=== PATIENT | male | born 1945 | race Caucasian/White ===

== ENCOUNTER 2023-09-13 23:57 | Inpatient (IN) | payer OTHER, SELFPAY ==
[2023-09-13 20:18] VITALS: BP 150/108
[2023-09-13 22:28] VITALS: BP 193/88; BMI 26.6
--- NOTE | 2023-09-13 22:52 | ED.GENMED ---
History of Present Illness
General
Chief Complaint: Skin Problem
Source: patient
Exam Limitations: none
Time Seen by Provider: 09/13/23 22:41
Nursing documentation reviewed up to this point in time: agreed with
Travel History
Have you had any contact with someone who has COVID-19?: No
Do you have any symptoms of coronavirus? Fever > 100 degrees, chills, cough, shortness of breath, sore throat, loss of taste or smell, muscle aches, or headache?: No
History of Present Illness
History of Present Illness:
Patient presents to ED secondary to worsening open wound on his left medial ankle, which has worsened over the past 'months'. Patient also recently noted increased lower leg swelling with warmth and redness. Denies fever or chills. Denies nausea
or vomiting. Denies direct trauma. Patient does not remember how the initial open wound took place. Patient states that he has been healthy all his life, and has never seen any physician ever.
Review of Systems
Review of Systems
Allergies reviewed?: Yes
All Other Systems: ROS reviewed and negative except as documented in HPI and ROS
Constitutional: Reports no symptoms
EENT: Reports no symptoms
Respiratory: Reports no symptoms
Cardiac: Reports no symptoms
ABD/GI: Reports no symptoms
Musculoskeletal: Reports no symptoms
Skin: Reports other (leg ulcer with redness/swelling)
Neurological: Reports no symptoms
Phy Exam
Physical Exam
Physical Exam:
Physical Exam
General: no apparent distress, not acutely ill. afebrile
Head: nc/at. eomi
Neck: supple. normal range of motion
Neuro: alert and oriented. no focal neurological deficits
Skin: an approx 3cm area of ulcerated wound with minimal foul smelling drainage, with surrounding erythema/warmth, extending up to knee.
Psychiatric: well kept. interactive and cooperative
Extremities: LLE edema, surrounding ulcer.
Course
Orders/Labs/Results
Orders:
Orders
09/13/23 22:51
Vancomycin 1 Gram/200 ml [Vancocin] 1 gram in 200 ml IV NOW
09/13/23 22:57
Complete Blood Count/With Diff Urgent
Comprehensive Metabolic Panel Urgent
Lactic Acid Q4H
Comment: CANCEL 2nd LACTIC ACID IF 1st LACTIC ACID IS LESS THAN 2
Magnesium Urgent
Blood Culture Q30M
DEVIN Source: Blood/Venous
Specimen Description:
09/13/23 22:59
Blood Culture Q30M
DEVIN Source: Blood/Venous
Specimen Description:
09/13/23 23:04
Wound Culture [Wound/Abscess/Other Culture] Urgent
DEVIN Source: Leg
Specimen Description: Left
Date Specimen was Collected: 09/13/23
Time Specimen was Collected: 23:03
Comment: just above the left ankle.
09/13/23 23:33
Admit/Transfer Patient As Directed
Co-Sign Provider:
Level of Care: Inpatient admission
Assign to:: Medical/Surgical
Physician / Group: en
Diagnosis: left LE cellulitis
Reason for Hospitalization: left LE cellulitis
Expected length of stay greater than two midnights?: Yes
ELOS- Estimated Length of Stay in days: 3
I certify the patient meets the requirements for IP care: Yes
09/13/23 23:34
Code Status As Directed
Resuscitation Status: Full Code
09/14/23 00:00
CR Ankle - Left 2 Views Routine
Reason For Exam: ulcerated wound
09/14/23 01:39
Acetaminophen [Tylenol] 650 mg PO Q4HPRN PRN
HydrALAZINE [Apresoline] 10 mg IV Q4HPRN PRN
09/14/23 01:39
WOUND/OSTOMY CONSULT Routine
Reason for Consult: left ankle wound
Activity As Directed
Activity Level: Out of Bed-Early Mobility
Intake/ Output As Directed
Frequency: Per unit guidelines
Vital Signs As Directed
Frequency: Per unit guidelines
DX Deep Vein Thrombosis Video Routine
09/14/23 02:00
Piperacillin/Tazo 3.375 Gram [Zosyn] 3.375 gram in 50 ml IV Q6H
09/14/23 Breakfast
Regular
At Your Request: Full Participation
09/14/23 06:24
Basic Metabolic Panel IN AM
Complete Blood Count/No Diff IN AM
Hemoglobin A1c [Glycohemoglobin (HgbA1c)] IN AM
09/14/23 18:00
Enoxaparin Sodium [Lovenox] 40 mg SC QPM
09/15/23 06:00
Basic Metabolic Panel IN AM
Complete Blood Count/No Diff IN AM
09/16/23 06:00
Basic Metabolic Panel IN AM
Complete Blood Count/No Diff IN AM
09/17/23 06:00
Basic Metabolic Panel IN AM
Complete Blood Count/No Diff IN AM
09/18/23 06:00
Basic Metabolic Panel IN AM
Complete Blood Count/No Diff IN AM
Abnormal Lab Results
09/13/23
22:57
RBC 4.37 L 10^6/uL
(4.70-6.10)
Hgb 12.9 L g/dL
(13.0-18.0)
MPV 10.6 H fL
(7.4-10.4)
Absolute Lymphs (auto) 0.9 L 10^3/uL
(1.2-3.4)
Neutrophils % 75.3 H %
(42.2-75.2)
Lymphocytes % 15.5 L %
(20.5-51.1)
BUN 33 H mg/dl
(9-20)
09/13/23 22:57
09/13/23 22:57
Vital Signs
Initial and Last Documented VS:
Initial Vital Signs
Temp Pulse Resp BP Pulse Ox
97.9 F 84 18 150/108 98
09/13/23 20:18 09/13/23 20:18 09/13/23 20:18 09/13/23 20:18 09/13/23 20:18
Last Documented Vital Signs
Temp Pulse Resp BP Pulse Ox
97.6 F 72 18 147/67 96
09/14/23 15:27 09/14/23 15:27 09/14/23 15:27 09/14/23 15:27 09/14/23 15:27
MDM/Problems Addressed
MDM/Problems Addressed:
Patient with likely undiagnosed, untreated multiple medical condition, along with worsening left lower leg wound with surrounding cellulitic changes. Patient will be admitted for IV antibiotics and further evaluation/treatment.
*Critical Care Note
Total Time (30-74mins, 75-104mins- exclusive of procedures): Not Applicable
ED Attending Note
-
Portions of this chart may have been created with voice recognition software.� Occasional wrong word or��sound alike� substitutions may have occurred due to the inherent limitations of voice recognition software.
Discharge Plan
Departure
Patient Disposition: Admit
Date of Disposition: 09/13/23
Time of Disposition: 23:12
Admit to: Med/Surg
Presentation/result/management discussed w/ accepting MD/DO: Hospitalist
Discharge Problem:
Cellulitis
Interventions
Interventions:
*Risk Screen - Suicide Last Done: 09/13/23 20:18
*General Assessment Last Done: 09/13/23 22:23
*Neglect/Abuse Screening Last Done: 09/13/23 20:18
ED- Fall Risk Assessment Last Done: 09/13/23 23:45
*ED COVID-19 Vaccine History Last Done: 09/13/23 22:23
*Nursing Disposition Last Done: 09/14/23 01:29
ED-Skin Assessment Last Done: 09/14/23 01:23
Discharge Date and Time
Discharge Date/Time: 09/14/23 01:30
[2023-09-13] MEDS: VANCOCIN 200 IV (23:08)
[2023-09-13 23:10] LABS: % Basophils 1.2 % (0-2); % Eosinophils 2.1 % (0-6); % Immature Granulocytes 0.2 % (0-0.5); % Lymphocytes 15.5 % (20.5-51.1); % Monocytes 5.7 % (1.7-9.3); % Neutrophils 75.3 % (42.2-75.2); Absolute Basophils 0.1 10^3/uL (0-0.2); Absolute Eosinophils 0.1 10^3/uL (0-0.7); Absolute Lymphocytes 0.9 10^3/uL (1.2-3.4); Absolute Monocytes 0.3 10^3/uL (0.1-0.6); Absolute Neutrophils 4.4 10^3/uL (1.4-6.5); Hematocrit 39.1 % (39.0-52.0); Hemoglobin 12.9 g/dL (13.0-18.0); Mean Corpuscular Hgb 29.5 pg (27.0-31.0); Mean Corpuscular Volume 89.5 fL (80.0-94.0); Mean Platelet Volume 10.6 fL (7.4-10.4); Nucleated Red Blood Cells % 0 % (-); Platelet Count 166 10^3/uL (130-400); Red Blood Cell Count 4.37 10^6/uL (4.70-6.10); Red Cell Dist. Width 12.9 % (11.5-14.5); White Blood Cell Count 5.8 10^3/uL (4.8-10.8)
--- NOTE | 2023-09-13 23:13 | HPS.HSE ---
Family Physician
-
Family Physician:
Chief Complaint
-
left LE wound
History of Present Illness
77-year-old with past medical history presented to us with worsening open wound on his left medial ankle. He noticed wound many months ago. It is getting worse. Noted increased leg swelling, warmth and redness. Denied fever. He recently noted
some chills. Denied headache, dizziness, syncopal episode. Patient denies any chest pain or short of breath. Patient denies abdominal pain, nausea, vomiting, diarrhea. Patient denies dysuria,hematuria. Patient walks a lot. The trauma.
Patient received a dose of Vanco in ER. For further management
Medical History
Past Medical History
Past Medical History: Reports Other
Additional Past Medical History:
Bradycardia
neuropathy
Past Surgical History: Reports Other
Additional Past Surgical History:
Tonsillectomy
Social History
Tobacco: Non-smoker
Alcohol: None
Drug: None
Living: Alone
Family History
Family History: Not pertinent
Allergies / Home Medications
Allergies reflects when Allergies were last updated in [employer].
Home Medications with original date entered in [employer]
Allergy/Medication List:
Allergies
Allergy/AdvReac Type Severity Reaction Status Date / Time
No Known Allergies Allergy Verified 09/13/23 20:23
Home Medications
No Meds [No Current Medications] 09/13/23
Review of Systems
-
Constitutional: Reports No Symptoms
EENT: Reports No Symptoms
Respiratory: Reports No Symptoms
Cardiac: Reports No Symptoms
Abdomen/GI: Reports No Symptoms
: Reports No Symptoms
Musculoskeletal: Reports No Symptoms
Skin: Reports Other (Left median ankle wound)
Neurological: Reports No Symptoms
Endocrine: Reports No Symptoms
Hematologic/Lymphatic: Reports No Symptoms
Psych: Reports No Symptoms
Physical Exam
Vital Signs
Vital Signs
Temp Pulse Resp BP Pulse Ox
98.7 F 74 18 193/88 99
09/13/23 22:28 09/13/23 22:28 09/13/23 22:28 09/13/23 22:28 09/13/23 22:28
Physical Exam
General: Well Developed, Well Nourished and No Apparent Distress
HEENT: NormoCephalic, Moist mucous membranes and Atraumatic
Respiratory: Clear
Cardiac: S1/S2 and Regular Rhythm; No Murmur or Rub
GI: Soft, Non Tender, Non Distended and Normal Bowel Sounds; No Organomegaly
Rectal: Deferred by Provider
Musculoskeletal: No Clubbing, No Cyanosis and No Edema
Skin: Rash and Other (Ulcerated wound with surrounding erythema and warmth extending to knee)
Neuro: AO x 3 and Nonfocal/grossly intact
Psych: Calm
Laboratory Results
-
09/13/23 22:57
Data Reviewed
-
Lab Data: Labs Reviewed by me
Impression/Plan
-
# Left lower extremity ulcerated wound/cellulitis
-Wound culture sent from ER
-Blood culture sent from ER
-iv vancomycin and Zosyn continued
-Tylenol prn for fever
-obtain LE artery US
-obtain X ray of ankle to evaluated for osteo
-wound consulted
-consider orthopedic consult in AM
#hypertension
-BP elevated in ER
-PRN hydralazine
#hxt of neuropathy
#DVT prophylaxis
-Lovenox
#CODE status
-full code
[2023-09-13 23:22] LABS: Lactic Acid 0.7 mmol/L (0.7-2.0)
[2023-09-13 23:23] LABS: ALT (SGPT) 13 U/L (0-50); AST (SGOT) 24 U/L (17-59); Albumin 4.7 g/dl (3.5-5.0); Alkaline Phosphatase 54 U/L (38-126); Blood Urea Nitrogen 33 mg/dl (9-20); Calcium 9.9 mg/dl (8.4-10.2); Carbon Dioxide 27 mmol/L (22-30); Chloride 104 mmol/L (98-107); Estimated Creatinine Clearance 69 ml/min; Glucose 92 mg/dl (70-99); Magnesium 2.1 mg/dl (1.6-2.3); Potassium 3.7 mmol/L (3.5-5.1); Sodium 141 mmol/L (135-145); Total Bilirubin 0.7 mg/dl (0.2-1.3); Total Protein 8.2 g/dl (6.3-8.2); eGFR > 60.00
--- NOTE | 2023-09-13 23:50 | W.PN.UPDATE ---
Update Note
Progress Note Update
This is an addendum to the H&P written by SHAW Gale on 09/13/2023.
Patient seen examined independent with SPORTS PSYCHOLOGIST. 77-year-old male with no known medical history apart from recent bilateral lower foot neuropathy presenting with infected left ankle medial infected wound with surrounding foot cellulitis.
History suggesting diabetic ulcer however blood glucose normal. Wound culture, blood cultures sent. Vancomycin/Zosyn. Check hemoglobin A1c. Check ankle x-ray to evaluate for osteomyelitis. Check arterial ultrasound. Wound care consulted.
Consider orthopedic podiatry/ vascular depending on findings.
--- NOTE | 2023-09-14 01:17 | WOUNDNOTE ---
left leg
left leg
[2023-09-14 01:30] VITALS: BP 199/82; BMI 25.4
[2023-09-14] MEDS: APRESOLINE 10 MG IV ×2 (01:57→23:36)
[2023-09-14] MEDS: ZOSYN 50 IV ×3 (01:57→15:07)
--- NOTE | 2023-09-14 02:33 | PTCARENOTE ---
Received pt from ED via stretcher. Pt walked himself to bed. AAOx3 - very talkative, BP elevated, states he is a little anxious. PRN hydralazine given as ordered. Other vitals stable. Oriented pt to room. Call garcia within reach.
[2023-09-14 03:10] VITALS: BP 172/71
[2023-09-14 07:20] VITALS: BP 147/61
[2023-09-14 07:26] LABS: Hematocrit 35.1 % (39.0-52.0); Hemoglobin 11.7 g/dL (13.0-18.0); Mean Corp Hgb Conc. 33.3 g/dL (33.0-37.0); Mean Corpuscular Hgb 30.5 pg (27.0-31.0); Mean Corpuscular Volume 91.6 fL (80.0-94.0); Mean Platelet Volume 11.1 fL (7.4-10.4); Platelet Count 149 10^3/uL (130-400); Red Blood Cell Count 3.83 10^6/uL (4.70-6.10); Red Cell Dist. Width 12.8 % (11.5-14.5); White Blood Cell Count 5.3 10^3/uL (4.8-10.8)
[2023-09-14 08:01] LABS: Blood Urea Nitrogen 27 mg/dl (9-20); Calcium 8.9 mg/dl (8.4-10.2); Carbon Dioxide 28 mmol/L (22-30); Chloride 105 mmol/L (98-107); Estimated Creatinine Clearance 78 ml/min; Glucose 81 mg/dl (70-99); Potassium 3.6 mmol/L (3.5-5.1); Sodium 135 mmol/L (135-145); eGFR > 60.00
--- NOTE | 2023-09-14 09:12 | PHA.VAN.IN ---
Assessment
- Assessment
Renal Function: Appears similar to baseline
Concomitant Antimicrobials: piperacillin/tazobactam
AUC Dosing Plan
- Dosing Variables
Dosing Weight (kg): 71
Dosing CrCl (ml/min): 78
Vd coefficient (L/kg): 0.7
- Empiric Dosing
Initial / Loading Dose: Vanc 1000mg 09/12 23:08
Maintenance Regimen: Vanc 750mg Q12H - give dose now then 1800 in lieu of load
Estimated AUC (mcg*h/mL): 452
Estimated Peak (mcg*h/mL): 26.8
Estimated Trough (mcg/ml): 12.5
Estimated Half Life (H): 10
- Monitoring
No levels ordered at this time: consider levels in next few days
Pharmacokinetics Vancomycin I
- -
Patient Age: 77
Patient Sex: Male
Vancomycin Day #: 1
Indication: Skin And Soft Tissue
Requesting Provider: Veronika Gale
Pertinent Antimicrobial Allergies:
NKDA
Height / Weight:
Height 5 ft 6 in
Actual Weight 71.384 kg
- Vital Signs / Lab Results
Temp Pulse Resp BP Pulse Ox
98.0 F 69 16 147/61 97
09/14/23 07:20 09/14/23 07:20 09/14/23 07:20 09/14/23 07:20 09/14/23 07:20
Lab Results - Hematology
09/13/23 09/14/23
22:57 06:24
WBC 5.8 5.3
Lab Results - Chemistry
09/13/23 09/14/23
22:57 06:24
BUN 33 H 27 H
Creatinine 0.8 0.7
Estimated Creat Clear 69 78
Albumin 4.7
09/13/23 09/14/23
22:57 03:00
Lactic Acid 0.7 Cancelled
[2023-09-14 09:22] LABS: Glycohemoglobin (HgbA1c) 5.9 % (4.0-5.6)
[2023-09-14] MEDS: VANCOCIN 150 IV (10:50)
--- NOTE | 2023-09-14 11:23 | W.PN.HOSP.TC ---
Today's Communication/Plan
-
await arterial US
will consult ID
probable wound care post dc
Assessment / Plan
Assessment / Plan
# Left lower extremity ulcerated wound/cellulitis
-Wound culture sent from ER
-Blood culture sent from ER
-iv vancomycin and Zosyn continued
-Tylenol prn for fever
-obtain LE artery US pending
- X ray of ankle No focal cortical bony destructive process.
-wound consulted
ID consult
Hga1c 5.9%
#hypertension
-BP elevated in ER, better now, 147/61
though did receive 1 dose of Hydralazine at 01:57 this morning
will follow, consider starting anti-HTN Rx based on BP over next 24 hrs
-PRN hydralazine
#hxt of neuropathy
#DVT prophylaxis
-Lovenox
#CODE status
-full code
Anticipated Discharge: 24 - 48 hours
Subjective/Interval History
-
Date of Service: September 14, 2023
Left medial ankle wound
Objective Data
-
Labs:
Laboratory Results
09/13/23 09/14/23
22:57 06:24
WBC 5.3
Hgb 11.7 L
Hct 35.1 L
Plt Count 149
Sodium 141 135
Potassium 3.7 3.6
Chloride 104 105
Carbon Dioxide 27 28
BUN 33 H 27 H
Creatinine 0.8 0.7
Glucose 92 81
Calcium 9.9 8.9
Total Bilirubin 0.7
AST 24
ALT 13
Alkaline Phosphatase 54
Vital Signs:
Vital Signs
Temp Pulse Resp BP Pulse Ox
98.0 F 69 16 147/61 97
09/14/23 07:20 09/14/23 07:20 09/14/23 07:20 09/14/23 07:20 09/14/23 07:20
Review of Systems
-
History Source: Patient and Coordinated Provider
Constitutional: Denies Fever
EENT: Reports No Symptoms Reported
Respiratory: Reports No Symptoms
Cardiac: Reports No Symptoms
Abdomen/GI: Reports No Symptoms
Musculoskeletal: Reports Other (wound area is tender)
Skin: Reports Sores
Physical Exam
-
General: Well Developed, Well Nourished and No Apparent Distress
HEENT: Normocephalic, Atraumatic and Moist Mucous Membranes
Respiratory: Clear to Auscultation; Negative Wheezes, Rales or Rhonchi
Cardiac: Regular Rhythm and S1/S2
GI: Soft, Nontender and Nondistended
Musculoskeletal: No Clubbing, No Cyanosis and No Edema
Skin: Rash (left medial LE)
Neuro: Awake, Alert and Oriented
[2023-09-14 11:25] VITALS: BP 166/89
--- NOTE | 2023-09-14 12:04 | WOUNDNOTE ---
L LOWER MEDIAL LEG
--- NOTE | 2023-09-14 12:05 | WOUNDNOTE ---
L 3RD PLANTAR TOE CALLUS
--- NOTE | 2023-09-14 12:05 | WOUNDNOTE ---
L POSTERIOR LOWER LEG
--- NOTE | 2023-09-14 12:07 | WOUNDNOTE ---
ADALBERTO RN note: Patient admitted with cellulitis of L leg.
See H&P for complete history.
PMH: HTN and neuropathy.
Wound Location and type/assessment: Patient admitted with: L leg open ulcer with redness and edema of leg. Wound on leg for several months states patient, started when scratched leg. Wound culture pending. + palpable pedal pulses, heels intact.
Legs and feet with dry skin, few calluses on plantar feet and L 3rd toe. Patient states he walks allot until recently when pain and wound in leg became worse. Able to turn self onto sides, sacrum intact.
Appetite: Good.
Pressure redistribution devices in place: [employer] bed, he is ad jarrell.
Plan: Today applied honey gel, adaptic and dry dressing with rex wrap knee high, patient tolerating.
Will confirm orders with hospitalist and updated nurse Alex.
Updated care plan and will follow as needed.
Note to case management of equipment requested for discharge: VN if accepted.
Recommend follow up at wound care center upon discharge.
[2023-09-14 15:27] VITALS: BP 147/67
--- NOTE | 2023-09-14 17:15 | CON.ID ---
Consultation
-
Date/Time Consultation Requested: September 14, 2023 1202
Date/Time Consultation Performed: September 14, 2023 1600
Requesting Provider: Dr. Joaquin Mccabe
Performing Provider: Dr. Yessenia Delgado
Reason for Consultation: Infected leg wound
Chief Complaint / Past History
Chief Complaint
LEFT leg redness
History of Present Illness
77-year-old male with neuropathy who does not see a doctor presented to the hospital on September 12 due to worsening erythema of the left leg. He reports he has a left medial ankle wound for a long time/many months. Wound started when his ankle was
itching and he scratched the area. In time, the ankle wound got progressively larger than stabilized. Wound is painful. He tries to take care of of the wound himself by applying Neosporin and a Kotex pad. Over the past few days, he noted his
legs started to become more red around the wound. No fevers or chills.
Past History
Additional Past Medical History:
(No routine medical care)
Neuropathy
Allergy History:
No Known Allergies Allergy (Verified 09/13/23 20:23)
Medications Reviewed: Yes
Current Antibiotics:
Vancomycin
Zosyn
Social History
Tobacco: Non-Smoker
Alcohol: None
Drug: None
Personal: Single
Living: Alone (apartment. no pets)
Employment: Not Employed
Family History
Family History: Not Pertinent
Review of Systems
Review of Systems
General: Negative Fever, Chills or Change in Appetite
HEENT: Negative Sinus Problems, Headache or Pharyngitis
Cardiovascular: Negative Chest Pain
Respiratory: Negative Dyspnea or Cough
Genital / Urological: Negative Dysuria or Flank Pain
Endocrine: Negative Weakness or Fatigue
Neurological: Negative Headache or Dizziness
All systems: All other systems were reviewed and were negative
Vital Signs
Temp Pulse Resp BP Pulse Ox
97.6 F 72 18 147/67 96
09/14/23 15:27 09/14/23 15:27 09/14/23 15:27 09/14/23 15:27 09/14/23 15:27
Physical Exam
Physical Exam
Constitutional: No Acute Distress
Eyes: No Conjunctival Hemorrhage and Sclera Anicteric
Oral: Poor Dentition
Cardiovascular: Regular Rate and S1/S2
Pulmonary: Clear
Gastrointestinal: Soft, Non Tender, Non Distended and Normal Bowel Sounds
Genito-Urinary: Negative CVA Tenderness
Extremities: Edema (LLE 1+) and Pulses (palpable pedal pulses)
Wound: Other (Above left medial ankle: large oval shallow wound with dark yellow fibrinous exudate; + erythema around wound extending up joshua and down the foot. )
Neurological: AO x 3
Psychological: Other (Talkative)
Lab / Diagnostic Study Results
09/14/23 06:24
09/14/23 06:24
Abs Immat Gran (auto) 0.0 10^3/uL (0-0.05) 09/13/23 22:57
Absolute Neuts (auto) 4.4 10^3/uL (1.4-6.5) 09/13/23 22:57
Absolute Lymphs (auto) 0.9 10^3/uL (1.2-3.4) L 09/13/23 22:57
Absolute Monos (auto) 0.3 10^3/uL (0.1-0.6) 09/13/23 22:57
Absolute Basos (auto) 0.1 10^3/uL (0-0.2) 09/13/23 22:57
Immature Gran % 0.2 % (0-0.5) 09/13/23 22:57
Neutrophils % 75.3 % (42.2-75.2) H 09/13/23 22:57
Lymphocytes % 15.5 % (20.5-51.1) L 09/13/23 22:57
Monocytes % 5.7 % (1.7-9.3) 09/13/23 22:57
Eosinophils % 2.1 % (0-6) 09/13/23 22:57
Basophils % 1.2 % (0-2) 09/13/23 22:57
Lactic Acid Cancelled 09/14/23 03:00
Microbiology Results
Micro:
09/13/23 23:04 Wound Culture - Pending
Leg - Left Gram Stain - Preliminary
09/14/23 02:24 MRSA Screen - Pending
Nose
09/13/23 22:57 Blood Culture - Pending
Blood/Venous
09/13/23 22:59 Blood Culture - Pending
Blood/Venous
Ankle XRAY: No focal cortical bony destructive process.
Arterial duplex: left TBI 0.96; Right PRINCE 1.21
Assessment / Plan
# Acute LLE cellulitis
# LLE venous stasis ulcer
- Appreciate wound care recs.
-Continue compression.
-Narrow Vanco/Zosyn to cefepime.
- Follow clinically
[2023-09-14] MEDS: STERILE WATER FOR INJECTION 10 ML IV (21:08)
[2023-09-14] MEDS: MAXIPIME 2000 MG IV (21:09)
[2023-09-14 23:15] VITALS: BP 181/75
[2023-09-15 03:45] VITALS: BP 139/52
[2023-09-15] MEDS: MAXIPIME 2000 MG IV ×3 (05:45→21:01)
[2023-09-15] MEDS: STERILE WATER FOR INJECTION 10 ML IV ×3 (05:45→21:01)
[2023-09-15 07:30] VITALS: BP 144/63
[2023-09-15 07:32] LABS: Hematocrit 35.7 % (39.0-52.0); Hemoglobin 11.9 g/dL (13.0-18.0); Mean Corp Hgb Conc. 33.3 g/dL (33.0-37.0); Mean Corpuscular Hgb 29.9 pg (27.0-31.0); Mean Corpuscular Volume 89.7 fL (80.0-94.0); Mean Platelet Volume 10.7 fL (7.4-10.4); Platelet Count 159 10^3/uL (130-400); Red Blood Cell Count 3.98 10^6/uL (4.70-6.10); White Blood Cell Count 5.3 10^3/uL (4.8-10.8)
[2023-09-15 07:51] LABS: Blood Urea Nitrogen 30 mg/dl (9-20); Carbon Dioxide 26 mmol/L (22-30); Chloride 107 mmol/L (98-107); Estimated Creatinine Clearance 69 ml/min; Glucose 89 mg/dl (70-99); Sodium 136 mmol/L (135-145); eGFR > 60.00
[2023-09-15] MEDS: HYDROPHOR 1 APPLIC TOPICAL (10:10)
--- NOTE | 2023-09-15 12:19 | W.PN.ID1 ---
Date of Service
Date of Service: September 15, 2023
Today's Communication
check qtc
Assessment / Plan
# Acute LLE cellulitis
# LLE venous stasis ulcer
- wound culture many GNR, rare GPCs; MRSA screen negative
- Continue compression; elevation as tolerated
- EKG to check QTc
- continue cefepime.
- Appreciate wound care recs.
- Follow clinically
Chief Complaint
-: Cellulitis
Subjective / Review of Systems
afebrile
bp stable
without leukocytosis
cr stable
blood cultures no growth to date
leg less swollen still quite red
Vital Signs / Physical Exam
Vital Signs
Vital Signs
Temp Pulse Resp BP Pulse Ox
98.2 F 60 18 144/63 97
09/15/23 07:30 09/15/23 07:30 09/15/23 07:30 09/15/23 07:30 09/15/23 08:00
Physical Exam
Constitutional: No Acute Distress
Cardiovascular: Regular Rate and S1/S2; Negative Murmur or Rub
Pulmonary: Clear and Symmetric; Negative Wheezes or Rales
Gastrointestinal: Soft, Non Tender, Non Distended and Normal Bowel Sounds
Skin: Warm, Dry and Rash (photo reviewed still bright red, swollen, tender); Negative Jaundice
Neurological: Awake
Objective Data
Lab Data
Lab Results
09/15/23 06:23
09/15/23 06:23
Estimated Creat Clear 69 ml/min 09/15/23 06:23
Lactic Acid Cancelled 09/14/23 03:00
Total Bilirubin 0.7 mg/dl (0.2-1.3) 09/13/23 22:57
AST 24 U/L (17-59) 09/13/23 22:57
ALT 13 U/L (0-50) 09/13/23 22:57
Alkaline Phosphatase 54 U/L (38-126) 09/13/23 22:57
Most recent labs reviewed.
Micro Results:
09/14/23 02:24 MRSA Screen - Final
Nose No Methicillin Resistant Staphylococcus aureus isolated.
09/13/23 22:59 Blood Culture - Preliminary
Blood/Venous No Growth in 24 hours- Final report to follow
09/13/23 22:57 Blood Culture - Preliminary
Blood/Venous No Growth in 24 hours- Final report to follow
09/13/23 23:04 Wound Culture - Pending
Leg - Left Gram Stain - Preliminary
Ankle XRAY: No focal cortical bony destructive process.
Arterial duplex: left TBI 0.96; Right PRINCE 1.21
Care Review
Plan reviewed with: Nurse (leg)
--- NOTE | 2023-09-15 12:35 | W.PN.HOSP.TC ---
Today's Communication/Plan
-
add Norvasc
plan to stop Hydralazine if BP normalizes
Assessment / Plan
Assessment / Plan
# Left lower extremity ulcerated wound/cellulitis
-Wound culture sent from ER-NGTD
-Blood culture sent from ER-NGTD
-iv vancomycin and Zosyn changed to Cefepime by ID
-Tylenol prn for fever
-obtain LE artery US pending
- X ray of ankle No focal cortical bony destructive process.
-wound consulted
ID consult
Hga1c 5.9%
#hypertension
-BP elevated in ER, better now, 144/63
though did receive 2 doses of Hydralazine
will follow,will add low dose Norvasc
-PRN hydralazine
#hxt of neuropathy
#DVT prophylaxis
-Lovenox
#CODE status
-full code
Anticipated Discharge: > 48 hours
Subjective/Interval History
-
Date of Service: September 15, 2023
Leg less painful
Objective Data
-
Labs:
Laboratory Results
09/15/23
06:23
WBC 5.3
Hgb 11.9 L
Hct 35.7 L
Plt Count 159
Sodium 136
Potassium 4.0
Chloride 107
Carbon Dioxide 26
BUN 30 H
Creatinine 0.8
Glucose 89
Calcium 9.0
Vital Signs:
Vital Signs
Temp Pulse Resp BP Pulse Ox
98.2 F 60 18 144/63 97
09/15/23 07:30 09/15/23 07:30 09/15/23 07:30 09/15/23 07:30 09/15/23 08:00
I&O
09/14/23 09/15/2324
06:59 06:59 06:59
Intake Total 1080 / 1080
Balance 1080 / 1080
Review of Systems
-
History Source: Patient and Coordinated Provider
Constitutional: Denies Fever
EENT: Reports No Symptoms Reported
Respiratory: Reports No Symptoms
Cardiac: Reports No Symptoms
Abdomen/GI: Reports No Symptoms
Musculoskeletal: Reports Other (wound area is tender)
Skin: Reports Sores
Physical Exam
-
General: Well Developed, Well Nourished and No Apparent Distress
HEENT: Normocephalic, Atraumatic and Moist Mucous Membranes
Respiratory: Clear to Auscultation; Negative Wheezes, Rales or Rhonchi
Cardiac: Regular Rhythm and S1/S2
GI: Soft, Nontender and Nondistended
Musculoskeletal: No Clubbing, No Cyanosis and No Edema
Skin: Rash (left medial LE, cellulitic rash has decreased by ~25%since starting abx) and Ulcers (leg wound slowly improving)
Neuro: Awake, Alert and Oriented
[2023-09-15] MEDS: NORVASC 5 MG PO (13:36)
[2023-09-15] MEDS: TYLENOL 650 MG PO (13:39)
[2023-09-15 15:45] VITALS: BP 163/71
--- NOTE | 2023-09-15 15:52 | CM ---
Addendum entered by Krupa Lozada 09/15/23 16:25:
Per patient's nurse, she helped him get an appointment [facility]
Patient does not drive; takes public transportation
Plan: wound care @ home vs Wound Care Center
Original Note:
Patient does not have a phone
Need to verify Pharmacy
Patient does not have a PCP; provided information to contact [facility]; ask to speak with Sadie; and make an appointment for next week.
Wound Care nurse offered to get patient scheduled with Wound Clinic after discharge
[2023-09-15 16:04] VITALS: BP 159/66
--- NOTE | 2023-09-15 16:16 | PTCARENOTE ---
Helped pt make followup appt post discharge.
[facility]
Dr Javier Locke
WednesdaySeptember 19 11:15am
[2023-09-15] MEDS: APRESOLINE 10 MG IV (22:58)
[2023-09-15 23:32] VITALS: BP 172/67
[2023-09-16 00:32] VITALS: BP 153/63
[2023-09-16] MEDS: STERILE WATER FOR INJECTION 10 ML IV ×3 (05:34→21:21)
[2023-09-16] MEDS: MAXIPIME 2000 MG IV ×3 (05:34→21:21)
[2023-09-16 08:11] VITALS: BP 175/76
[2023-09-16] MEDS: NORVASC 5 MG PO (08:16)
[2023-09-16] MEDS: HYDROPHOR 1 APPLIC TOPICAL (08:16)
[2023-09-16 09:49] VITALS: BP 159/91
--- NOTE | 2023-09-16 10:37 | CM ---
Addendum entered by Krupa Lozada 09/16/23 11:00:
Pharmacy updated in [facility]
Addendum entered by Krupa Lozada 09/16/23 10:53:
Referral for home health [facility] for Wound Care sent via [employer] Text to [facility] liaison
Patient advised to get a mobile phone; he said he can get a free phone from a nearby [employer]
PCP appointment scheduled for Wednesday
Original Note:
Met with patient, initial assessment completed
Pharmacy verified: [facility], [place]
Patient lives alone in an apartment; 1 step to enter building; 5-6 steps up to his apartment; bathroom has tub w/shower; grab bar
PLOF: independent with ambulation, ADLs, and stairs; utilizes public transportation
Reports that he has plenty of food in his pantry; utilizes food/meal resources in his community
Has an appointment to see Primary Care Physician @ [facility] next week
Does not have a phone
Reported that he will be able to get to [facility] via public transportation
Plan: discharge to home when medically stable; outpatient wound care services @ [facility]
--- NOTE | 2023-09-16 12:19 | W.PN.HOSP.TC ---
Today's Communication/Plan
-
continue Cefepime
continue Norvasc
Assessment / Plan
Assessment / Plan
# Left lower extremity ulcerated wound/cellulitis
-Wound culture sent from ER- Pseudomonas, Strep
-Blood culture sent from ER-NGTD
-iv vancomycin and Zosyn changed to Cefepime by ID
-Tylenol prn for fever
-obtain LE artery US pending
- X ray of ankle No focal cortical bony destructive process.
-wound consulted
ID consult appreciated
Hga1c 5.9%
Pt would like to be transitioned to oral abx tomorrow, await further input from ID, for now continue Cefepime
#hypertension
-BP elevated in ER, better now, 159/91
though did receive 3 doses of Hydralazine
will follow, added low dose Norvasc
-PRN hydralazine
#hxt of neuropathy
#DVT prophylaxis
-Lovenox
#CODE status
-full code
Anticipated Discharge: 24 - 48 hours
Subjective/Interval History
-
Date of Service: September 16, 2023
Still with leg pain
Objective Data
-
Vital Signs:
Vital Signs
Temp Pulse Resp BP Pulse Ox
97.5 F 67 18 159/91 96
09/16/23 08:11 09/16/23 09:49 09/16/23 09:49 09/16/23 09:49 09/16/23 09:49
I&O
09/15/23 09/16/23 09/17/23
06:59 06:59 06:59
Intake Total 1080 / 1080 840 / 840
Balance 1080 / 1080 840 / 840
Review of Systems
-
History Source: Patient and Coordinated Provider
Constitutional: Denies Fever
EENT: Reports No Symptoms Reported
Respiratory: Reports No Symptoms
Cardiac: Reports No Symptoms
Abdomen/GI: Reports No Symptoms
Musculoskeletal: Reports Other (wound area is tender)
Skin: Reports Sores
Physical Exam
-
General: Well Developed, Well Nourished and No Apparent Distress
HEENT: Normocephalic, Atraumatic and Moist Mucous Membranes
Respiratory: Clear to Auscultation; Negative Wheezes, Rales or Rhonchi
Cardiac: Regular Rhythm and S1/S2
GI: Soft, Nontender and Nondistended
Musculoskeletal: No Clubbing, No Cyanosis and No Edema
Skin: Rash (left medial LE, cellulitic rash has decreased further) and Ulcers (leg wound slowly improving)
Neuro: Awake, Alert and Oriented
[2023-09-16] MEDS: TYLENOL 650 MG PO (12:34)
--- NOTE | 2023-09-16 12:50 | VNURNOTE ---
Home Health Liaison met with patient at 1130 to discuss [facility] nurse visits, schedule and homebound status. Patient is agreeable and understands that visits at home will be 2-3 x per week to assess and teach medical management and wound care. Patient
does not currently have a PCP and [facility] brochure provided with contact information and patient understands to call after being seen by [facility].
Patient is also in need of phone, he will obtain phone from his [facility] and understands to call [facility] office to arrange visits.
[facility] referral completed in [facility]
[2023-09-16 15:52] VITALS: BP 168/63
[2023-09-16] MEDS: APRESOLINE 10 MG IV (16:16)
[2023-09-16 17:26] VITALS: BP 145/74
[2023-09-16 23:08] VITALS: BP 153/63
[2023-09-17] MEDS: STERILE WATER FOR INJECTION 10 ML IV (05:32)
[2023-09-17] MEDS: MAXIPIME 2000 MG IV (05:32)
[2023-09-17 07:30] VITALS: BP 168/75
[2023-09-17] MEDS: HYDROPHOR 1 APPLIC TOPICAL (08:03)
[2023-09-17] MEDS: NORVASC 5 MG PO (08:06)
[2023-09-17 08:18] LABS: % Basophils 1.3 % (0-2); % Lymphocytes 25.4 % (20.5-51.1); % Monocytes 8.6 % (1.7-9.3); % Neutrophils 51.7 % (42.2-75.2); Absolute Basophils 0.1 10^3/uL (0-0.2); Absolute Eosinophils 0.6 10^3/uL (0-0.7); Absolute Lymphocytes 1.2 10^3/uL (1.2-3.4); Absolute Monocytes 0.4 10^3/uL (0.1-0.6); Absolute Neutrophils 2.3 10^3/uL (1.4-6.5); Hematocrit 37.5 % (39.0-52.0); Hemoglobin 12.2 g/dL (13.0-18.0); Mean Corp Hgb Conc. 32.5 g/dL (33.0-37.0); Mean Corpuscular Hgb 30.2 pg (27.0-31.0); Mean Corpuscular Volume 92.8 fL (80.0-94.0); Mean Platelet Volume 10.9 fL (7.4-10.4); Nucleated Red Blood Cells % 0 % (-); Platelet Count 147 10^3/uL (130-400); Red Blood Cell Count 4.04 10^6/uL (4.70-6.10); Red Cell Dist. Width 12.9 % (11.5-14.5); White Blood Cell Count 4.5 10^3/uL (4.8-10.8)
[2023-09-17 08:37] LABS: Blood Urea Nitrogen 33 mg/dl (9-20); Calcium 9.1 mg/dl (8.4-10.2); Carbon Dioxide 26 mmol/L (22-30); Chloride 107 mmol/L (98-107); Estimated Creatinine Clearance 69 ml/min; Glucose 100 mg/dl (70-99); Potassium 4.6 mmol/L (3.5-5.1); Sodium 136 mmol/L (135-145); eGFR > 60.00
[2023-09-17 08:51] LABS: Erythrocyte Sed Rate 12 mm/hour (0-20)
[2023-09-17] MEDS: TYLENOL 650 MG PO (09:28)
--- NOTE | 2023-09-17 13:44 | W.PN.ID1 ---
Date of Service
Date of Service: September 17, 2023
Today's Communication
- start ciprofloxacin and keflex x3 more days
- follow up with wound care center
- Follow up with PCP
Assessment / Plan
# Acute LLE cellulitis
# LLE venous stasis ulcer
- wound culture many Pseduomonas, K oxytoca, GBS, CONS
- Continue compression; elevation as tolerated
- QTc 465
- start ciprofloxacin and keflex x3 more days
- follow up with wound care center
- Follow up with PCP
Chief Complaint
-: Cellulitis
Subjective / Review of Systems
afebrile
hypertensive
mild leukopenia today
cr stable
wound cultures finalized
Vital Signs / Physical Exam
Vital Signs
Vital Signs
Temp Pulse Resp BP Pulse Ox
97.9 F 69 18 168/75 96
09/17/23 07:30 09/17/23 08:06 09/17/23 07:30 09/17/23 08:06 09/17/23 08:18
Physical Exam
Constitutional: No Acute Distress
Pulmonary: Symmetric and Non Labored
Gastrointestinal: Non Distended
Skin: Warm, Dry and Other (wound without surrounding erythema, minimal serous drainage, no odor; no longer swollen); Negative Rash or Jaundice
Objective Data
Lab Data
Lab Results
09/17/23 07:37
09/17/23 07:37
ESR 12 mm/hour (0-20) 09/17/23 07:37
Estimated Creat Clear 69 ml/min 09/17/23 07:37
Lactic Acid Cancelled 09/14/23 03:00
Total Bilirubin 0.7 mg/dl (0.2-1.3) 09/13/23 22:57
AST 24 U/L (17-59) 09/13/23 22:57
ALT 13 U/L (0-50) 09/13/23 22:57
Alkaline Phosphatase 54 U/L (38-126) 09/13/23 22:57
Most recent labs reviewed.
Organism 1 Pseudomonas aeruginosa
Organism 2 Klebsiella oxytoca
P.AERU K.OXYTOCA
M.I.C. RX M.I.C. RX
--------- --- --------- ---
Amoxicillin/Potas. Clavulanate <=8/4 S
Ampicillin >16 R
Ampicillin/Sulbactam <=8/4 S
Cefazolin 4 I
Cefepime 4 S <=2 S
Ceftazidime 4 S <=1 S
Ceftriaxone <=1 S
Ertapenem <=0.5 S
Ciprofloxacin <=0.25 S <=0.25 S
Gentamicin 8 I <=4 S
Levofloxacin <=0.5 S <=0.5 S
Meropenem <=1 S <=1 S
Piperacillin/Tazobactam <=16 S <=16 S
Tobramycin <=4 S <=4 S
Trimethoprim/Sulfamethoxazole <=2/38 S
Micro Results:
09/13/23 23:04 Wound Culture - Final
Leg - Left Pseudomonas aeruginosa
Klebsiella oxytoca
Streptococcus agalactiae
Gram Stain - Final
09/13/23 22:59 Blood Culture - Preliminary
Blood/Venous No Growth in 72 hours- Final report to follow
09/13/23 22:57 Blood Culture - Preliminary
Blood/Venous No Growth in 72 hours- Final report to follow
09/14/23 02:24 MRSA Screen - Final
Nose No Methicillin Resistant Staphylococcus aureus isolated.
Ankle XRAY: No focal cortical bony destructive process.
Arterial duplex: left TBI 0.96; Right PRINCE 1.21
Care Review
Plan reviewed with: Physician (Dr Mccabe - abx)
--- NOTE | 2023-09-17 14:47 | W.PN.HOSP.TC ---
Today's Communication/Plan
-
dc now
Assessment / Plan
Assessment / Plan
# Left lower extremity ulcerated wound/cellulitis
-Wound culture sent from ER- Pseudomonas, Strep
-Blood culture sent from ER-NGTD
-iv vancomycin and Zosyn changed to Cefepime by ID and now Cipro and Keflex
-Tylenol prn for fever
-obtain LE artery US pending
- X ray of ankle No focal cortical bony destructive process.
-wound consulted
ID consult appreciated
Hga1c 5.9%
#hypertension
-BP elevated in ER, better now, 159/91
though did receive 3 doses of Hydralazine
will follow, added low dose Norvasc
-PRN hydralazine
#hxt of neuropathy
#DVT prophylaxis
-Lovenox
#CODE status
-full code
dc now
see dictated note
Anticipated Discharge: Today
Subjective/Interval History
-
Date of Service: September 17, 2023
Pt anxiously awaiting dc
Objective Data
-
Labs:
Laboratory Results
09/17/23
07:37
WBC 4.5 L
Hgb 12.2 L
Hct 37.5 L
Plt Count 147
Sodium 136
Potassium 4.6
Chloride 107
Carbon Dioxide 26
BUN 33 H
Creatinine 0.8
Glucose 100 H
Calcium 9.1
Vital Signs:
Vital Signs
Temp Pulse Resp BP Pulse Ox
97.9 F 69 18 168/75 96
09/17/23 07:30 09/17/23 08:06 09/17/23 07:30 09/17/23 08:06 09/17/23 08:18
I&O
0509/17/23 09/18/23
06:59 06:59 06:59
Intake Total 840 / 840 1679
Balance 840 / 840 1679
Review of Systems
-
History Source: Patient and Coordinated Provider
Constitutional: Denies Fever
EENT: Reports No Symptoms Reported
Respiratory: Reports No Symptoms
Cardiac: Reports No Symptoms
Abdomen/GI: Reports No Symptoms
Musculoskeletal: Reports Other (wound area is tender)
Skin: Reports Sores
Physical Exam
-
General: Well Developed, Well Nourished and No Apparent Distress
HEENT: Normocephalic, Atraumatic and Moist Mucous Membranes
Respiratory: Clear to Auscultation; Negative Wheezes, Rales or Rhonchi
Cardiac: Regular Rhythm and S1/S2
GI: Soft, Nontender and Nondistended
Musculoskeletal: No Clubbing, No Cyanosis and No Edema
Skin: Rash (left medial LE, cellulitic rash has decreased further) and Ulcers (leg wound slowly improving)
Neuro: Awake, Alert and Oriented
[2023-09-17 15:23] VITALS: BP 174/69
--- NOTE | 2023-09-17 15:59 | CM ---
MD entered order for discharge.
Spoke with patient in room. He said he was dc today and he agreed he felt better.
[facility] saw patient.
PCP Resident MD at [facility] set up for Wed09/20/23 11:15 am. Pt aware that after visit he can call [facility] to start VN process .
Pt walks alot offered an Uber to train station. Pt declined. Gave pt information for [employer] to take him to Train station. He said he would take [place] to train to get home.
He said he will be getting a free phone from local [employer].
PLAN Home with [facility] after PCP visit.
--- NOTE | 2023-09-17 16:42 | W.DS.TRANS ---
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
-
Discharge Instructions:
Discharge Diagnosis/Procedures Infected left leg ulcer
Diet Regular
Activity No restrictions
Additional Activity when sitting need to keep leg elevated
Driving Restrictions No driving
Bathing Restrictions None
Blood Work CBC, BMP in 2-3 weeks
Other Services VN
Instructions:
Stand-Alone Forms:
Changes to Home Medications: Yes
Discharge Medications:
DC Medications w/original date entered in [facility]
amlodipine 5 mg tablet 5 mg PO DAILY #30 tabs 09/17/23
cephalexin 500 mg capsule 500 mg PO QID #20 caps 09/17/23
ciprofloxacin HCl 500 mg tablet 500 mg PO BID #10 tabs 09/17/23
white petrolatum 42 % topical ointment (Hydrophor) 1 applic topical DAILY Skin issues 14 days #100 grams 09/17/23
Home Medication Changes
all above meds are new
Pending Results: No
== END 2023-09-17 17:00 | disposition home or self-care (01) | DRG 603 ==
LOC: 4 EAST ACU 23:57
PROVIDERS: Registered Nurse; ADMITTING PHYSICIAN Hospitalist; ATTENDING PHYSICIAN Internal Medicine; CONSULT PHYSICIAN Internal Medicine Infectious Disease; EMERGENCY PHYSICIAN Emergency Medicine
DX: L03.116 Cellulitis of left lower limb (principal); L97.329 Non-pressure chronic ulcer of left ankle with unspecified severity; I10 Essential (primary) hypertension; G62.9 Polyneuropathy, unspecified; B96.5 Pseudomonas (aeruginosa) (mallei) (pseudomallei) as the cause of diseases classified elsewhere; B96.1 Klebsiella pneumoniae [K. pneumoniae] as the cause of diseases classified elsewhere; B95.4 Other streptococcus as the cause of diseases classified elsewhere
CPT/HCPCS: 73600; 80048; 80053; 83036; 83605; 83735; 85025; 85027; 85652; 87040; 87070; 87077; 87147; 87186; 87205; 93005; 93922; 93925; 96365; 99285

== ENCOUNTER 2023-09-27 16:37 | Emergency (ER) | payer MEDICAID, SELFPAY ==
[2023-09-27 16:48] VITALS: BP 184/80
[2023-09-27 19:06] VITALS: BP 172/83
--- NOTE | 2023-09-27 21:04 | ED.SKININJ ---
HPI-Injury
General
Chief Complaint: Skin Problem
Source: patient
Exam Limitations: none
Time Seen by Provider: 09/27/23 17:37
Nursing documentation reviewed up to this point in time: agreed with
Travel History
Have you had any contact with someone who has COVID-19?: No
Do you have any symptoms of coronavirus? Fever > 100 degrees, chills, cough, shortness of breath, sore throat, loss of taste or smell, muscle aches, or headache?: No
History of Present Illness-Injury
Is this injury a work related problem?: No
Is pt an associate of [facility]?: No
Initial Injury comments:
Patient to ED requesting dressing change for wound to left lwer leg. States he has an appointment at the wound care center tomorrow. He has had a nonhealing wound to his leg for many months. States he was unable to get to providers office for
dressing change, He has no other comlaints.
Past History
Past History
ED Past Medical History: HTN
Review of Systems
Review of Systems
Allergies reviewed?: Yes
All Other Systems: ROS reviewed and negative except as documented in HPI and ROS
Constitutional: Reports no symptoms
EENT: Reports no symptoms
Respiratory: Reports no symptoms
Cardiac: Reports no symptoms
ABD/GI: Reports no symptoms
Musculoskeletal: Reports no symptoms
Skin: Reports other (approx 3cm round wound to left lower leg. Small amt of yellow drainage noted on old dressing. Mild erythema surrounding wound. Currently on antibiotic.)
Neurological: Reports no symptoms
Psychiatric: Reports no symptoms
Phy Exam
General Physical Exam
General Presentation: well appearing and no apparent distress
General age: appears stated age
General Skin: warm and dry
General Habitus: normal
General Mental: alert
General Hydration: appears well hydrated
Musculoskeletal Exam
Musculoskeletal Exam: full ROM and neuro vasc intact
Skin Exam
Skin Exam: other (approx 3cm round open wound left lower leg. Smallamt yellow discharge on old dressing. Mild surrounding erythema. No complaints of pain)
Psychiatric Exam
Psychiatric Exam: normal mood/affect
Course
Vital Signs
Initial and Last Documented VS:
Initial Vital Signs
Temp Pulse Resp BP Pulse Ox
98.5 F 67 18 184/80 99
09/27/23 16:48 09/27/23 16:48 09/27/23 16:48 09/27/23 16:48 09/27/23 16:48
Last Documented Vital Signs
Temp Pulse Resp BP Pulse Ox
98.5 F 67 18 172/83 99
09/27/23 16:48 09/27/23 16:48 09/27/23 16:48 09/27/23 19:06 09/27/23 16:48
*Critical Care Note
Total Time (30-74mins, 75-104mins- exclusive of procedures): Not Applicable
Update Note
Update Note:
Wound dressed by RN. He is discharged home and will follow up with wound care center in AM
ED Attending Note
-
Portions of this chart may have been created with voice recognition software.� Occasional wrong word or��sound alike� substitutions may have occurred due to the inherent limitations of voice recognition software.
Discharge Plan
Departure
Patient Disposition: Home (Routine Discharge)
Date of Disposition: 09/27/23
Time of Disposition: 18:43
Patient with high blood pressure during this ER visit?: No
Condition: Good
Covid-19: Not Applicable
Discharge Problem:
Visit for wound care
Instructions: Wound Care (DC)
Prescriptions:
No Action
ciprofloxacin HCl 500 mg Tablet
500 mg PO BID Qty: 10 0RF
Rx Instructions:
take for 5 days
amlodipine 5 mg Tablet
5 mg PO DAILY Qty: 30 2RF
cephalexin 500 mg Capsule
500 mg PO QID Qty: 20 0RF
white petrolatum [Hydrophor] 42 % Ointment
1 applic topical DAILY 14 Days Qty: 100 0RF
Referrals:
Wound Care Center [Outside] - Tomorrow
UNKNOWN - PT DOES,NOT KNOW [Family Provider] -
Interventions
Interventions:
*Risk Screen - Suicide Last Done: 09/27/23 16:50
*General Assessment Last Done: 09/27/23 16:50
*Neglect/Abuse Screening Last Done: 09/27/23 16:50
ED- Fall Risk Assessment Last Done: 09/27/23 19:06
*ED COVID-19 Vaccine History Last Done: 09/27/23 18:39
*Nursing Disposition Last Done: 09/27/23 19:06
ED-Skin Assessment Last Done: 09/27/23 18:55
Discharge Date and Time
Discharge Date/Time: 09/27/23 19:06
Print Language: ITALIAN
== END 2023-09-27 19:06 | disposition home or self-care (01) ==
LOC: EMR 16:37
PROVIDERS: EMERGENCY PHYSICIAN Emergency Medicine
DX: S81.802A Unspecified open wound, left lower leg, initial encounter (principal); X58.XXXA Exposure to other specified factors, initial encounter; I10 Essential (primary) hypertension
CPT/HCPCS: 99283

== ENCOUNTER → 2023-10-05 08:47 | Outpatient (REF) | payer MEDICAID, SELFPAY | LOC: WOUND 08:47 | PROVIDERS: ATTENDING PHYSICIAN Surgery; FAMILY PHYSICIAN Student in an Organized Health Care Education/Training Program | DX: L97.822 Non-pressure chronic ulcer of other part of left lower leg with fat layer exposed (principal) | CPT/HCPCS: 11042; 99203 ==

== ENCOUNTER → 2023-10-12 14:39 | Outpatient (REF) | payer MEDICAID, SELFPAY | LOC: WOUND 14:39 | PROVIDERS: ATTENDING PHYSICIAN Surgery; FAMILY PHYSICIAN Student in an Organized Health Care Education/Training Program | DX: L97.822 Non-pressure chronic ulcer of other part of left lower leg with fat layer exposed (principal) | CPT/HCPCS: 97597 ==

== ENCOUNTER → 2023-10-18 14:17 | Outpatient (REF) | payer MEDICAID, SELFPAY | LOC: WOUND 14:17 | PROVIDERS: ATTENDING PHYSICIAN Surgery; FAMILY PHYSICIAN Student in an Organized Health Care Education/Training Program | DX: L97.822 Non-pressure chronic ulcer of other part of left lower leg with fat layer exposed (principal) | CPT/HCPCS: 97597 ==

== ENCOUNTER → 2023-10-25 13:59 | Outpatient (REF) | payer MEDICAID, SELFPAY | LOC: WOUND 13:59 | PROVIDERS: ATTENDING PHYSICIAN Surgery | DX: L97.822 Non-pressure chronic ulcer of other part of left lower leg with fat layer exposed (principal) | CPT/HCPCS: 29581; 99212 ==

== ENCOUNTER → 2023-11-01 14:03 | Outpatient (REF) | payer MEDICAID, SELFPAY | LOC: WOUND 14:03 | PROVIDERS: ATTENDING PHYSICIAN Surgery | DX: L97.822 Non-pressure chronic ulcer of other part of left lower leg with fat layer exposed (principal) | CPT/HCPCS: 29580 ==

== ENCOUNTER → 2023-11-08 09:34 | Outpatient (REF) | payer MEDICAID, SELFPAY | LOC: WOUND 09:34 | PROVIDERS: ATTENDING PHYSICIAN Surgery | DX: L97.822 Non-pressure chronic ulcer of other part of left lower leg with fat layer exposed (principal) | CPT/HCPCS: 97597 ==

== ENCOUNTER → 2023-11-15 14:05 | Outpatient (REF) | payer MEDICAID, SELFPAY | LOC: WOUND 14:05 | PROVIDERS: ATTENDING PHYSICIAN Surgery | DX: L97.822 Non-pressure chronic ulcer of other part of left lower leg with fat layer exposed (principal) | CPT/HCPCS: 97597 ==

== ENCOUNTER → 2023-11-22 14:05 | Outpatient (REF) | payer MEDICAID, SELFPAY | LOC: WOUND 14:05 | PROVIDERS: ATTENDING PHYSICIAN Surgery | DX: L97.822 Non-pressure chronic ulcer of other part of left lower leg with fat layer exposed (principal) | CPT/HCPCS: 97597 ==

== ENCOUNTER → 2023-11-29 14:01 | Outpatient (REF) | payer MEDICAID, SELFPAY | LOC: WOUND 14:01 | PROVIDERS: ATTENDING PHYSICIAN Surgery | DX: L97.822 Non-pressure chronic ulcer of other part of left lower leg with fat layer exposed (principal) | CPT/HCPCS: 97597 ==

== ENCOUNTER → 2023-12-06 07:38 | Outpatient (REF) | payer MEDICARE, SELFPAY | LOC: WOUND 07:38 | PROVIDERS: ATTENDING PHYSICIAN Surgery; FAMILY PHYSICIAN Student in an Organized Health Care Education/Training Program | DX: L97.822 Non-pressure chronic ulcer of other part of left lower leg with fat layer exposed (principal) | CPT/HCPCS: 99212 ==

== ENCOUNTER → 2023-12-13 14:06 | Outpatient (REF) | payer MEDICARE, SELFPAY | LOC: WOUND 14:06 | PROVIDERS: ATTENDING PHYSICIAN Surgery | DX: L97.822 Non-pressure chronic ulcer of other part of left lower leg with fat layer exposed (principal) | CPT/HCPCS: 99212 ==

== ENCOUNTER → 2023-12-27 13:59 | Outpatient (REF) | payer MEDICARE, SELFPAY | LOC: WOUND 13:59 | PROVIDERS: ATTENDING PHYSICIAN Surgery | DX: L97.822 Non-pressure chronic ulcer of other part of left lower leg with fat layer exposed (principal) | CPT/HCPCS: 29580; 99213 ==

== ENCOUNTER → 2024-01-03 14:12 | Outpatient (REF) | payer MEDICARE, SELFPAY | LOC: WOUND 14:12 | PROVIDERS: ATTENDING PHYSICIAN Surgery; FAMILY PHYSICIAN Student in an Organized Health Care Education/Training Program | DX: L97.822 Non-pressure chronic ulcer of other part of left lower leg with fat layer exposed (principal) | CPT/HCPCS: 97597; 99213 ==

== ENCOUNTER → 2024-01-10 14:06 | Outpatient (REF) | payer MEDICARE, MEDICAID, SELFPAY | LOC: WOUND 14:06 | PROVIDERS: ATTENDING PHYSICIAN Surgery | DX: L97.822 Non-pressure chronic ulcer of other part of left lower leg with fat layer exposed (principal) | CPT/HCPCS: 97597 ==

== ENCOUNTER → 2024-01-18 14:07 | Outpatient (REF) | payer MEDICARE, MEDICAID, SELFPAY | LOC: WOUND 14:07 | PROVIDERS: ATTENDING PHYSICIAN Surgery | DX: L97.822 Non-pressure chronic ulcer of other part of left lower leg with fat layer exposed (principal) | CPT/HCPCS: 99212 ==

== ENCOUNTER → 2024-01-25 15:08 | Outpatient (REF) | payer MEDICARE, MEDICAID, SELFPAY | LOC: WOUND 15:08 | PROVIDERS: ATTENDING PHYSICIAN Surgery | DX: L97.822 Non-pressure chronic ulcer of other part of left lower leg with fat layer exposed (principal) | CPT/HCPCS: 99212 ==